=== PATIENT | female | born 1945 | race Caucasian/White ===

== ENCOUNTER 2020-02-22 22:00 | Emergency (ER) | payer MEDICARE ==
[~2020-02-22] VITALS: Ht 160 cm; Wt 54.4 kg
[2020-02-22] MEDS ORDERED: cloNIDine HCL 0.1 MG TAB PO ONE (22:15)
[2020-02-23 01:45] LABS: Basophils # (auto) 0.1 10 ^3/uL (0-0.2); Basophils % (auto) 1.3 % (0.0-2.0); Eosinophils # (auto) 0.1 10 ^3/uL (0-0.8); Eosinophils % (auto) 1.2 % (0.0-7.0); Hematocrit 45.3 % (36.0-46.0); Hemoglobin 15.9 g/dL (12.2-16.2); Lymphocytes # (auto) 0.5 10 ^3/uL (0.4-5.4); Lymphocytes % (auto) 7.3 % (10.0-50.0); Mean Corpuscular Hemoglobin 33.4 pg (28.0-32.0); Mean Corpuscular Volume 95.5 fL (80.0-100.0); Monocytes # (auto) 0.8 10 ^3/uL (0-1.3); Neutrophils % (auto) 78.2 % (37.0-80.0); Nucleated Red Blood Cells % 0.3 %; Platelet Count (auto) 283 10^3/uL (140-450); Red Blood Cells 4.74 10^6/uL (4.0-5.20); Red Cell Distribution Width 14.1 % (11.8-14.3); White Blood Cell 6.3 10^3/uL (4.4-10.8)
[2020-02-23 02:51] LABS: INR 0.98 (0.9-1.15); Partial Thromboplastin Time 36.3 sec (23.0-31.2)
[2020-02-23 02:56] LABS: Albumin 3.9 g/dL (3.4-5.0); Calcium 9.2 mg/dL (8.5-10.1); Magnesium 1.8 mg/dL (1.6-2.6); Potassium 3.2 mmol/L (3.5-5.1)
[2020-02-23 03:08] LABS: Bilirubin, Total 0.5 mg/dL (0.2-1.0); Total Protein 8.2 g/dL (6.4-8.2)
[2020-02-23 04:36] VITALS: BP 178/85
== END 2020-02-23 05:42 | disposition home or self-care (01) ==
LOC: EDBD 22:00 → ER 22:04
DX: R07.89 Other chest pain (principal); I16.0 Hypertensive urgency; I10 Essential (primary) hypertension; R79.89 Other specified abnormal findings of blood chemistry; Z91.041 Radiographic dye allergy status
CPT/HCPCS: 36415; 71045; 80053; 83735; 83880; 84443; 84484; 85025; 85379; 85610; 85730; 93005